=== PATIENT | female | born 1985 | race African-American/Black ===

== ENCOUNTER 2024-06-21 12:15 | Emergency (ER) | payer OTHER ==
[~2024-06-21] VITALS: Ht 172.7 cm; Wt 61.2 kg
[2024-06-21 12:19] VITALS: BP 102/80; PULSE 75; RESP 20; TEMP 97.3; O2SAT 99
[2024-06-21 12:26] VITALS: BP 107/69; RESP 15; TEMP 97.7
[2024-06-21] MEDS: NACL 0.9% 1,000 ML IV ONE (13:04)
[2024-06-21] MEDS: ONDANSETRON 4 MG/2 ML VIAL IVP ONE (13:06)
[2024-06-21 13:07] LABS: HEMOGLOBIN 9.4 g/dL (12.0-16.0); MEAN CORPUSCULAR HEMOGLOBIN 21 pg (27-31); MEAN CORPUSCULAR HGB CONC 30 g/dL (33-37); MEAN CORPUSCULAR VOLUME 69.2 fL (80-94); PLATELET COUNT (AUTO) 314 K/uL (140-450); RED BLOOD CELL COUNT(AUTO) 4.48 MIL/uL (4.20-5.40); RED CELL DISTRIBUTION WIDTH 21.5 % (11.6-13.7); WHITE BLOOD COUNT (AUTO) 3.6 K/uL (4.8-10.8)
[2024-06-21 13:18] LABS: CALCIUM 8.8 mg/dL (8.5-10.1); CARBON DIOXIDE 32.6 mmol/L (21-32); CREATININE 0.9 mg/dL (0.6-1.3); POTASSIUM 3.6 mmol/L (3.5-5.1)
[2024-06-21 13:22] LABS: ALANINE AMINOTRANSFERASE 17 U/L (12-78); ALKALINE PHOSPHATASE 73 U/L (50-136); ASPARTATE AMINOTRANSFERASE 20 U/L (15-37); BILIRUBIN,DIRECT 0.1 mg/dL (0.0-0.3); LIPASE 63 U/L (16-77); PHOSPHORUS 2.8 mg/dL (2.5-4.9); TOTAL BILIRUBIN 0.3 mg/dL (0.0-1.0); TOTAL PROTEIN, SERUM 7.9 g/dL (6.4-8.2)
[2024-06-21 13:30] LABS: ACETONE, SERUM Negative (NEGATIVE)
[2024-06-21 13:49] LABS: EOSINOPHILS % (MANUAL) 2 % (0-4); LYMPHOCYTES % (MANUAL) 34 % (20-46); MONOCYTES % (MANUAL) 9 % (5-12); PLATELET ESTIMATE ADEQUATE
[2024-06-21 13:50] LABS: HYPOCHROMASIA 1+; TARGET CELLS 1+
[2024-06-21 13:52] LABS: TEAR DROP CELLS RARE
[2024-06-21 13:57] VITALS: PULSE 75; O2SAT 98
[2024-06-21] MEDS ORDERED: FERR325E14 PO (13:57)
== END 2024-06-21 14:17 | disposition home or self-care (01) ==
LOC: MED 12:15
DX: R56.9 Unspecified convulsions (principal); D64.9 Anemia, unspecified; J45.909 Unspecified asthma, uncomplicated; F41.9 Anxiety disorder, unspecified; Z79.899 Other long term (current) drug therapy
CPT/HCPCS: 36415; 80048; 80076; 82009; 83690; 83735; 84100; 84703; 85025; 96361; 96374; 99283; J2405; J7030